=== PATIENT | female | born 1970 | race African-American/Black ===

== ENCOUNTER → 2018-12-06 10:49 | Outpatient (CLI) | payer SELFPAY ==
[2018-12-06 14:46] LABS: Basophils # 0.1 K/mm3 (0-0.2); Basophils % 0.7 % (0.1-2.0); Eosinophils # 0.2 K/mm3 (0.0-0.4); Hemoglobin 13.1 g/dL (12.2-16.2); Lymphocytes # 2.8 K/mm3 (0.7-4.5); Lymphocytes % 36.2 % (10-50); Mean Corpuscular HGB Conc 32.7 g/dL (31.8-35.4); Mean Corpuscular Hemoglobin 29.9 pg (27.0-31.2); Mean Corpuscular Volume 91.2 fl (81-99); Mean Platelet Volume 7.5 fl (7.4-10.4); Monocytes # 0.3 K/mm3 (0.1-1.0); Monocytes % 4.2 % (1.7-9.3); Neutrophils # 4.3 K/mm3 (1.8-7.8); Neutrophils % 55.9 % (37.0-80.0); Platelet Count 334 K/mm3 (142-424); Red Blood Count 4.39 M/mm3 (4.20-5.40); Red Cell Distribution Width 13.8 % (11.5-17.5); White Blood Count 7.7 K/mm3 (4.8-10.8)
[2018-12-06 15:04] LABS: Alanine Aminotransferase 23 U/L (12-78); Albumin Level 3.8 gm/dL (3.4-5.0); Alkaline Phosphatase 119 U/L (46-116); Anion Gap 13.5 mEq/L (5-15); Aspartate Amino Transferase 9 U/L (15-37); Bilirubin,Total 0.4 mg/dL (0.2-1.0); Blood Urea Nitrogen 9 mg/dL (7-18); Calcium 9.3 mg/dL (8.5-10.1); Carbon Dioxide 28 mmol/L (21.0-32.0); Chloride 103 mmol/L (98-107); Estimated Glomerular Filt Rate 67 ml/min (>60); GFR (African American) 81 ML/MIN (>60); Globulin 3.7 gm/dl (1.3-3.2); Glucose 100 mg/dL (74-106); Potassium 3.5 mmoL/L (3.5-5.1); Sodium 141 mmol/L (136-145); Total Protein,Serum 7.5 gm/dL (6.4-8.2)
[2018-12-09 06:15] LABS: QuantiFERON-TB Gold Plus Negative (Negative)
== END ==
PROVIDERS: PCP Nurse Practitioner Family; Visit Provider Dermatology
DX: L40.0 Psoriasis vulgaris (principal); Z79.899 Other long term (current) drug therapy
CPT/HCPCS: 36415; 80053; 85025; 86480